=== PATIENT | male | born 1985 | race Caucasian/White ===

== ENCOUNTER → 2020-12-17 09:53 | Outpatient (BNVA) | payer OTHER, SELFPAY | PROVIDERS: Visit Provider Emergency Medicine | DX: Z20.822 Contact with and (suspected) exposure to COVID-19 (principal) | CPT/HCPCS: 87635 ==

== ENCOUNTER 2022-06-02 18:28 | Emergency (ER) | payer SELFPAY ==
[2022-06-02 18:41] VITALS: BP 131/88; PULSE 72; RESP 12; TEMP 37; O2SAT 100
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
== END 2022-06-02 19:33 | disposition home or self-care (01) ==
PROVIDERS: Emergency Provider Emergency Medicine
DX: S00.83XA Contusion of other part of head, initial encounter (principal); W20.8XXA Other cause of strike by thrown, projected or falling object, initial encounter
CPT/HCPCS: 70486; 99284

== ENCOUNTER 2023-02-03 18:02 | Emergency (ER) | payer OTHER, SELFPAY ==
[2023-02-03 18:18] VITALS: BP 130/80; PULSE 98; RESP 16; TEMP 36.7; O2SAT 98; BMI 23.7
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
[2023-02-03 19:34] VITALS: BP 116/69; PULSE 73; RESP 16; O2SAT 97
[2023-02-03] MEDS: bacitracin ointment Pkt 1 EACH TOPICAL (19:34)
--- NOTE | 2023-02-04 08:36 | PC.SOCIAL ---
Podiatry Referral Referral message sent to clinic at this time. Clinic to contact patient with appt date/time.
== END 2023-02-03 19:35 | disposition home or self-care (01) ==
PROVIDERS: Emergency Provider Nurse Practitioner Family
DX: S80.812A Abrasion, left lower leg, initial encounter (principal); S50.812A Abrasion of left forearm, initial encounter; S92.334A Nondisplaced fracture of third metatarsal bone, right foot, initial encounter for closed fracture; S92.344A Nondisplaced fracture of fourth metatarsal bone, right foot, initial encounter for closed fracture; V29.99XA Rider (driver) (passenger) of other motorcycle injured in unspecified traffic accident, initial encounter
CPT/HCPCS: 73502; 73630; 99284

== ENCOUNTER → 2023-02-13 09:05 | Outpatient (BNVA) | payer OTHER, SELFPAY | PROVIDERS: Visit Provider Podiatrist Foot & Ankle Surgery | DX: S92.334A Nondisplaced fracture of third metatarsal bone, right foot, initial encounter for closed fracture; S92.344A Nondisplaced fracture of fourth metatarsal bone, right foot, initial encounter for closed fracture; V28.49XA Other motorcycle driver injured in noncollision transport accident in traffic accident, initial encounter | CPT/HCPCS: 73630 ==

== ENCOUNTER → 2023-02-27 08:42 | Outpatient (BNVA) | payer OTHER, SELFPAY | PROVIDERS: Visit Provider Podiatrist Foot & Ankle Surgery | DX: S92.334D Nondisplaced fracture of third metatarsal bone, right foot, subsequent encounter for fracture with routine healing; S92.344D Nondisplaced fracture of fourth metatarsal bone, right foot, subsequent encounter for fracture with routine healing; V28.49XD Other motorcycle driver injured in noncollision transport accident in traffic accident, subsequent encounter | CPT/HCPCS: 73630 ==